=== PATIENT | male | born 2000 | race Caucasian/White ===

== ENCOUNTER 2022-07-22 11:55 | Outpatient (CLI) | payer OTHER, SELFPAY ==
[2022-07-22 13:49] LABS: Basophils Absolute Auto 0.1 K/mm3 (0.0-0.1); Basophils Percent Auto 1.2 % (0.2-1.2); Hematocrit 43.6 % (42.0-52.0); Hemoglobin 15.2 g/dL (14.0-18.0); Immature Granulocyte Absolute 0.02 K/mm3 (0.00-0.031); Immature Granulocyte Percent A 0.5 % (0-0.5); Lymphocytes Absolute Auto 1.29 K/mm3 (0.9-3.2); Mean Corpuscular HGB Conc 34.9 g/dl (32-36); Mean Corpuscular Hemoglobin 30.8 pg (26-34); Mean Corpuscular Volume 88.4 fl (80-100); Mean Platelet Volume 10.6 fl (7.4-10.4); Monocytes Absolute Auto 0.3 K/mm3 (0.1-0.6); Monocytes Percent Auto 7.4 % (2.6-8.5); Neutrophils Absolute Auto 2.3 K/mm3 (1.3-6.7); Neutrophils Percent Auto 57.9 % (45.5-73.1); Platelet Count Result 229 k/mm3 (150-375); Red Blood Count 4.93 M/mm3 (4.6-6.20); Red Cell Distribution Width 12.5 % (11.5-14.5)
[2022-07-22 14:03] LABS: Alanine Aminotransferase 21 U/L (6-50); Albumin Level 4.6 g/dL (3.5-5.1); Alkaline Phosphatase 53 U/L (38-126); Anion Gap 6 mmol/L (8-16); Aspartate Amino Transferase 46 U/L (17-59); Blood Urea Nitrogen 18 mg/dL (9-20); Calcium 8.9 mg/dL (8.4-10.2); Carbon Dioxide 29 mmol/L (22-30); Chloride 103 mmol/L (98-107); Cholesterol 128 mg/dL (0-200); Estimated Glomerular Filt Rate > 60; Glucose 91 mg/dL (65-110); HDL Direct 54 mg/dL; Potassium 4.5 mmol/L (3.4-5.0); Sodium 138 mmol/L (137-145); Triglycerides 35 mg/dL (<150)
[2022-07-22 14:14] LABS: LDL Cholesterol Direct 55 mg/dL
[2022-07-22 14:29] LABS: Thyroid Stimulating Hormone 0.945 uIU/mL (0.465-4.680)
== END 2022-07-22 11:56 | disposition home or self-care (01) ==
LOC: ANHGOSHLAB 11:56
PROVIDERS: PCP Internal Medicine; Visit Provider Nurse Practitioner
DX: F41.9 Anxiety disorder, unspecified (principal); Z13.220 Encounter for screening for lipoid disorders
CPT/HCPCS: 36415; 80053; 80061; 84443; 85025

== ENCOUNTER 2024-07-28 14:41 | Emergency (ER) | payer OTHER, SELFPAY ==
--- OUTSIDE RECORDS SUMMARY | 2024-07-28 14:43 | XMS_ITS | Data Portability ---
Author Organization [place] [facility], Main Office Address [address] [place] [address] Care Team Providers Care Field Operations Supervisor Name Role Phone PILO TIPTON Poker Manager Assessment Encounter Date Assessment Date Assessment LastModified by Organization Details LastModified Time 06/02/2022 06/02/2022 Patient has a left shoulder strain of the rotator cuff tendon and or biceps tendon of the left shoulder. He has been having ongoing pain for at least a month we talked about treatment options today in detail he wanted pain relief therefore under sterile conditions after further discussion I injected the patient's left shoulder subacromial space in the office with 4 cc 0.5% ropivacaine and 20 mg of Kenalog. Patient tolerated procedure well. We will do a course of oral prednisone and get an MRI scan to make sure he does not have any significant tearing of the rotator cuff tendon or injury to the biceps. we will see him back after that is done, he will continue with light duty at work call for any further problems difficulties or questions he voiced understanding agrees with above plan. [email or web address] Not available 06/02/2022 12:10:01 06/16/2022 06/16/2022 Patient returns rotator cuff strain left. He had a shot which he does not think was over the helpful did not take prednisone taper. He remains symptomatic I had a long discussion with him regarding prescription drug management and he does not want to take pills told him that he is hampering his recovery however will try therapy at this point he declined another injection into her shoulder I will see him in a month for follow-up his MRI scan that he brings today I reviewed pictures and report with him at demonstrates essentially normal anatomy maybe a little tendinitis. [email or web address] Not available 06/16/2022 10:08:34 Plan of Treatment Reminders Order Date Submit Date Provider Last Modified By Organization Details Last Modified Time Details Appointments None recorded. Lab None recorded. Referral physical therapist referral 2022 023 [facility], [address], [place], [address], 3 11:00:45 Procedures injection/ aspiration joint/burs a (PROC) - in office procedure, administer ed by provider 2022 023 [email or web address] Not available 13:54:46 Surgeries None recorded. Imaging MRI, shoulder, w/o contrast 2022 023 [facility], [address], [place], [address], 3 17:39:10 Medication Orders Kenalog 10 mg/mL suspension for injection 2022 023 [email or web address] Not available 13:02:25 ropivacain e (PF) 5 mg/mL (0.5 %) injection solution 2022 023 [email or web address] Not available 3 13:02:25 prednisone 10 mg tablets in a dose pack 2022 023 [email or web address] [id number], [address], [place], [id number], 3 12:26:24 Patient TargetsNo targets recorded. Patient InstructionsNo instructions recorded. Reason for Referral Physical Therapist Referral for Strain of rotator cuff of shoulder Referring Physician: Celso Ramirez, Orthopedic Surgery, Encounter Date: 06/16/2022 Results Created Date Observation Date Name Description Value Unit Range Abnormal Flag Note LastModifiedBy Organization Detail LastModifiedTime 06/02/19 23 05/23/2022 XR, shoul edward, 2 or more view No observ ation record ed. [email or web address] Not Available 04/2022 12:05:52 06/09/19 23 06/08/2022 MRI, shoul edward, w/o contr ast No observ ation record ed. [facility] [address], [place], [address], 06/13/2022 14:46:21 Result Notes None recorded. Problems Name Problem SNOMED Code Status Onset Date Resolution Date Notes Provider Name and Address Organization Details Recorded Time Pain of left shoulder joint 656179902172602 09 Active 2022 Phuong Lutz , KATHLEEN L null, [employer] 3 11:09:37 Strain of rotator cuff of shoulder 682523917 Active 2022 ABIGAIL Au [address], [place], [address] [facility] [place] [employer] 3 12:10:26 Problem Notes None recorded. Procedures Surgical History None recorded. Imaging Results Imaging Date Name Status LastModified by Organiz ation Details LastModified Time 05/23/2022 XR, shoulder, 2 or more view completed [email or web address] Information not available 06/01/2022 12:05:52 06/08/2022 MRI, shoulder, w/o contrast completed [facility] [address], [place], [address], 06/13/2022 14:46:21 Procedure Notes None recorded. Medical Equipment None Reported. Allergies No known drug allergies Medications Name Sig Start Date Stop Date Status Note LastModified by Organization Details LastModified Time prednisone 10 mg tablets in a dose pack Take 1 tab by mouth, 3 times a day for 3 daysTake 1 tab by mouth 2 times a day for 2 daysTake 1 tab by mouth once a day for 1 day 2022 active Not Available Not Available Not Avai lable Kenalog 10 mg/mL suspension for injection office 2022 active [facility]: 0003- [phone] Not Available Not Available Not Available ropivacaine (PF) 5 mg/mL (0.5 %) injection solution office 2022 active [facility] [phone]- [phone] Not Available Not Available Not Available Vitals Date Recorded Body height Body mass index (BMI) Body weight Provider Name and Address Organization Details Last Updated DateTime 06/02/2022 185.42 cm 21.1 kg/m2 69297.78 g Phuong Lutz, ATC L [employer] 06/02/2022 11:07:36 Date Recorded Body height Body mass index (BMI) Body weight Provider Name and Address Organization Details Last Updated DateTime 06/16/2022 185.42 cm 20.7 kg/m2 99947 g JULITO Valera [employer] 06/16/2022 09:48:10 Social History Question Answer Notes LastModified by Organizat ion Details LastModified Time Tobacco Smoking Status Never Smoker Phuong Lutz, ATC L [facility] [employer] 06/02/2022 11:09:22 What Is Your Level Of Alcohol Consumption? None [email or web address] Information not available 06/02/2022 Sex: Unknown Functional Status None recorded. Mental Status None recorded. Family History Relationship Description Onset Age of this Age Resolved Age Notes LastModified by Organization Details LastModified Time Maternal Grandfather Family history of malignant neoplasm [email or web address] Not available 05/2022 11:09:12 Maternal Grandmother Family history of malignant neoplasm [email or web address] Not available 05/2022 11:09:12 Medical History No medical history recorded. Past Encounters Encounter ID Performer Location Encounter Start Date Encounter Closed Date Diagnosis/Indication Diagnosis SNOMED-CT Code Diagnosis ICD10 Code Diagnosis Note [id number] [facility] [place] [address] [place] [address] 06/02/2022 10:31:17 06/02/2022 12:26:41 Pain of left shoulder joint 0452960785 [id number] M25.512 Strain of rotator cuff of shoulder 386140226 S46.012A [id number] Celso Ramirez MD [facility] [place] [address] [place] [address] 06/16/2022 09:46:28 06/16/2022 10:35:30 Pain of left shoulder joint [id number] 7668441 M25.512 Strain of rotator cuff of shoulder 949446906 S46.012A Health Concerns Section Related Observation LastModified by Organization Detai ls LastModified Time None Recorded Concern Status LastModified by Organization Details LastModified Time None Recorded Advance Directives Directive None Recorded Payers Encounter Date Sequence Insurance Name Policy Number Policy Ramirez Covered Member ID Ramirez Member ID Guarantor Name 06/02/2022 [employer] Wilson 06/16/2022 [employer] Wilson Notes Date Note Type Note Provider Name and Address Organization Details Recorded Time 06/02/2022 text/html patient is a 21-year-old male who presents with a recent injury to his left shoulder. The patient states he was at work lifting a heavy tire onto a platform when he felt a pop in the left shoulder. He has started to hurt soon after the lifting injury. Over the course of the last month his symptoms have been persistent and a little bit worse with time. The initial injury was May 06. He states he has aching pain in left shoulder anterior to posterior little more anteriorly worse with activity somewhat relieved by rest he comes in today in a sling he states he did go to [facility] ER had x-rays performed. X-rays were unremarkable no acute fracture lesion mass is seen joint space is well maintained subacromial space is well maintained I have reviewed the x-rays in detail today with the patient agree with above findings. X-rays were performed on 05/23/2022. The patient has been trying to rest his arm doing light duty at work taking occasional [id number] anti-inflammatory medication without significant relief. Still is limited when he can do in terms of heavy lifting or overhead motion denies any weakness no radicular pain no obvious deformity of the biceps did not develop any swelling or ecchymosis after the injury. He comes in today for initial evaluation treatment. Prior to the injury he states he has never had any trouble with the shoulder before. When prompted the patient is able to easily raise his arm overhead has no history of subluxation or dislocation.Past medical history sheet was reviewed and signed on the intake sheet today's date drug allergies current medications family social history previous surgical history 10 point review of systems was reviewed and discussed in detail today with the patient. ABIGAIL Au [address] [place] [address], [place] [address], [place], [address], [facility] [employer] [facility] 06/02/2022 12:11:03 06/16/2022 text/html Patient returns shoulder pain left. He continues to be symptomatic with activity he has impingement and pain with overhead motion he also complains pain sometimes just when he is laying down. Celso Ramirez MD [address] [place] [address], [facility] [address], [place], [address], [employer] [facility] 06/16/2022 10:11:00
[2024-07-28 14:47] VITALS: BP 154/89; PULSE 124; RESP 18; TEMP 36.7; O2SAT 100
--- NOTE | 2024-07-28 16:19 | ED.GENADULT ---
HPI - General Adult General Chief complaint: Urogenital-Male Stated complaint: STD Exposure Source: patient Mode of arrival: ambulatory Limitations: no limitations History of Present Illness HPI narrative: Pt presents requesting STI testing. He states he was contacted by a female sex partner who advised that she tested positive for gonorrhea. They last had sexual contact six days ago. He engaged in insertive vaginal intercourse but did not perform oral sex. He was not wearing condom. He now reports bilateral testicular tenderness without significant swelling. He denies any dysuria, urethral discharge, or other urinary symptoms. Related Data Allergies Allergy/AdvReac Type Severity Reaction Status Date / Time No Known Allergies Allergy Verified 07/28/24 14:53 Review of Systems Review of Systems: CONSTITUTIONAL: Denies fever, chills, or sweats. EYES: Denies visual changes, redness, or discharge. ENT: Denies rhinorrhea, congestion, sore throat, or otalgia. CARDIOVASCULAR: Denies chest pain, palpitations, or edema. RESPIRATORY: Denies cough or dyspnea. GASTROINTESTINAL: Denies abdominal pain, nausea, vomiting, or diarrhea. GENITOURINARY: Reports mild bilateral testicular tenderness. Denies dysuria or hematuria. SKIN: Denies rash or itching. MUSCULOSKELETAL: Denies back pain, joint pain, or myalgia. NEUROLOGIC: Denies headache, numbness, dizziness, or weakness. PSYCHIATRIC: Denies anxiety or depression. [facility] Past Medical History Medical History No pertinent past medical history Surgical History Surgical History (Updated 07/28/24 @ 16:22 by PRISCILLA ChamorroP, ) No pertinent past surgical history Family History Family History Grandparent Breast cancer Other Diabetes mellitus Hypertension Social History Social History Smoking status: Never smoker Second hand tobacco smoke exposure: No Do You Feel Safe in your Home?: Yes Lack of Transportation: No Lack of Food: Sometimes True Current Housing: I Have Housing Concerned About Future Housing: No Difficulty Paying Gas/Electric Bills: No Difficulty Paying for Meds: No Currently Unemployed: No Education: High School Diploma/GED Difficulty w/ Childcare or Family Care: No Exam Narrative: GENERAL: Well-appearing, well-nourished, and in no acute distress. HEAD: Normocephalic, atraumatic. EYES: PERRLA and EOMI. ENT: Nares clear, no rhinorrhea or epistaxis. Mucous membranes moist. Oropharynx without tonsillar hypertrophy exudate or other lesions. Bilateral TMs pearly smith nonbulging NECK: Supple. No adenopathy or masses. No carotid bruits or JVD CHEST: Clear to auscultation. No respiratory distress. No wheezes rales or rhonchi HEART: Regular rate and rhythm. No murmur heard. Normal peripheral pulses. ABDOMEN: Soft, nontender, nondistended, normal active bowel sounds. EXTREMITIES: Normal range of motion. No edema. SKIN: Warm, dry, no rash. GENITAL: No external genital lesions. No no urethral discharge. No inguinal lymphadenopathy. Mild bilateral testicular tenderness without swelling NEURO: No focal deficits. Alert and oriented x3. PSYCH: Normal mood and affect. Course Course Emergency Course: This is a 23-year-old male who presented requesting STI testing after his female sex partner tested positive for gonorrhea. He was given injection of Rocephin today. Will discharge with doxycycline. He should have a comprehensive STI evaluation performed. All sex partner should be evaluated and treated. He should abstain from sexual contact until 7 days after he and all sex partners have completed their treatment. He should follow up with primary provider. Go to the ER for worsening symptoms. Patient in agreement with plan of care. Level of Care: Express Care Visit Vital Signs Vital signs: Vital Signs Temperature 36.7 C 07/28/24 14:47 Pulse Rate 124 H 07/28/24 14:47 Respiratory Rate 18 07/28/24 14:47 Blood Pressure 154/89 H 07/28/24 14:47 Pulse Oximetry 100 07/28/24 14:47 Oxygen Delivery Room Air 07/28/24 14:47 Temperature 36.7 C 07/28/24 14:47 Pulse Rate 124 H 07/28/24 14:47 Respiratory Rate 18 07/28/24 14:47 Blood Pressure 154/89 H 07/28/24 14:47 Pulse Oximetry 100 07/28/24 14:47 Oxygen Delivery Room Air 07/28/24 14:47 Medical Decision Making Vital Signs Vital Signs: Vital Signs Temperature 36.7 C 07/28/24 14:47 Pulse Rate 124 H 07/28/24 14:47 Respiratory Rate 18 07/28/24 14:47 Blood Pressure 154/89 H 07/28/24 14:47 Pulse Oximetry 100 07/28/24 14:47 Oxygen Delivery Room Air 07/28/24 14:47 Temperature 36.7 C 07/28/24 14:47 Pulse Rate 124 H 07/28/24 14:47 Respiratory Rate 18 07/28/24 14:47 Blood Pressure 154/89 H 07/28/24 14:47 Pulse Oximetry 100 07/28/24 14:47 Oxygen Delivery Room Air 07/28/24 14:47 Discharge Plan Discharge Clinical Impression: Exposure to gonorrhea Patient Disposition: Home Condition: Stable Instructions: Antibiotic Form, Safe Sex Practices (ED), Gonorrhea (ED) Additional Instructions: PLEASE HAVE COMPREHENSIVE STI EXAMINATION PERFORMED PLEASE ABSTAIN FROM SEXUAL CONTACT UNTIL 7 DAYS AFTER COMPLETING YOUR ANTIBIOTIC THERAPY PLEASE HAVE ALL SEX PARTNERS EVALUATED AND TREATED Patient Language: Khmer Prescriptions: New doxycycline hyclate 100 mg capsule 100 mg PO BID 7 Days Qty: 14 0RF Follow-up/Referrals: Jerry Carrera MD [Physician] - Time of Disposition: 16:17
[2024-07-28] MEDS: cefTRIAXone 500 MG, LIDOCAINE 1% LOCAL INJ 1 ML IM (16:27)
[2024-07-28 16:33] LABS: EDUAAPPEAR Clear; EDUABILI Negative (Negative); EDUABLOOD Negative (Negative); EDUACOLOR1 Amber; EDUAGLUCOSE Negative (Negative); EDUAKETONE Negative (Negative); EDUALEUKO Negative (Negative); EDUANITRATE Negative (Negative); EDUAPH 5.5; EDUAPROTEIN 1+ (Negative); EDUAUROBILI 0.2
[2024-07-28 19:30] LABS: Trichomonas Vag PCR NOT DETECTED (NOT DETECTE)
[2024-07-28 19:57] LABS: Chlamydia trachomatis NOT DETECTED (NOT DETECTE); Neisseria gonorrhoeae PCR NOT DETECTED (NOT DETECTE)
== END 2024-07-28 16:47 | disposition home or self-care (01) ==
PROVIDERS: Emergency Provider Nurse Practitioner
DX: Z20.2 Contact with and (suspected) exposure to infections with a predominantly sexual mode of transmission (principal)
CPT/HCPCS: 81003; 87086; 87491; 87591; 87661; 96372; 99213; G0463; J0696; J2003

== ENCOUNTER 2025-03-07 15:51 | Emergency (ER) | payer OTHER, SELFPAY ==
--- NOTE | 2025-03-07 15:53 | ED.EYEPROB ---
HPI - Eye Problem General Chief complaint: Eye Problems Stated complaint: right eye Time Seen by Provider: 03/07/25 15:52 Source: patient Mode of arrival: ambulatory Limitations: no limitations History of Present Illness HPI Narrative: Jeremi is a 24 year old male patient presenting to the clinic today with c/o infected hair sore to the right eyebrow. He reports he attempted to remove it yesterday and was unable to get the hair out completely. Woke up with increase redness, pain, and swelling to the right eyebrow/lid. Has some yellow crusting over the area. No fever, chills, or body aches. No visual changes. Related Data Allergies Allergy/AdvReac Type Severity Reaction Status Date / Time No Known Allergies Allergy Verified 03/07/25 15:54 Review of Systems Review of Systems: Pertinent positives per HPI. Patient denies any fever, chills, rash, headache, visual changes, dizziness, cough, shortness of breath, chest pain, palpitations, nausea, vomiting, diarrhea, constipation, abdominal pain, or any urinary issues. ZAN Past Medical History Medical History No pertinent past medical history Surgical History Surgical History No pertinent past surgical history Family History Family History Grandparent Breast cancer Other Diabetes mellitus Hypertension Social History Social History Smoking status: Never smoker Second hand tobacco smoke exposure: No Lack of Transportation: No Lack of Food: Sometimes True Current Housing: I Have Housing Concerned About Future Housing: No Difficulty Paying Gas/Electric Bills: No Difficulty Paying for Meds: No Currently Unemployed: No Education: High School Diploma/GED Difficulty w/ Childcare or Family Care: No Comments At the time of my signature, I reviewed and agree with the nursing past medical, surgical, social, and family history. There is no relevant family history pertinent to the patient complaint. Exam Narrative: General: Well-developed, well nourished, in no apparent distress Head: Normocephalic, atraumatic Eyes: Pupils equally round and reactive to light bilaterally, EOM intact, sclera and conjunctive clear, no discharge, infected her sore to the right eyebrow with localized redness, mild erythema, and swelling. Induration measuring 1 cm x 1.5 cm-tenderness to palpation over the area without fluctuance Ears: TMs intact and clear, ear canals clear, no drainage, grossly hearing normal. Nose: Nares patent, no discharge, no inflammation, no sinus tenderness. Mouth: Oropharynx without lesions or masses, good dentition, MMM. Neck: Supple, trachea midline, no enlargement of anterior or posterior cervical nodes, no thyroid masses or goiter palpable. Cardio: Regular rate and rhythm, s1 and s2 normal, no murmur appreciated. Resp: Clear to auscultation bilaterally anteriorly and posteriorly, no rhonchi, rales, wheezing or rubs Course Course Level of Care: Express Care Visit Vital Signs Vital signs: Vital Signs Temperature 36.9 C 03/07/25 16:00 Pulse Rate 96 03/07/25 16:00 Respiratory Rate 18 03/07/25 16:00 Blood Pressure 131/66 03/07/25 16:00 Pulse Oximetry 100 03/07/25 16:00 Oxygen Delivery Room Air 03/07/25 16:00 Temperature 36.9 C 03/07/25 16:00 Pulse Rate 96 03/07/25 16:00 Respiratory Rate 18 03/07/25 16:00 Blood Pressure 131/66 03/07/25 16:00 Pulse Oximetry 100 03/07/25 16:00 Oxygen Delivery Room Air 03/07/25 16:00 [facility] Narrative Medical decision making narrative: At the time of visit patient is resting comfortably on the exam table. Patient appears to be nontoxic. C/o infected hair sore to the right eyebrow. He reports he attempted to remove it yesterday and was unable to get the hair out completely. Woke up with increase redness, pain, and swelling to the right eyebrow/lid. Has some yellow crusting over the area. No fever, chills, or body aches. No visual changes. On exam patient has infected her sore to the right eyebrow with localized redness, mild erythema, and swelling. Induration measuring 1 cm x 1.5 cm-tenderness to palpation over the area without fluctuance Plan: I suspect patient has an infected here sore to the right eyebrow. Prescription for doxycycline and mupirocin cream was sent to the pharmacy. May use warm compresses and take Tylenol/Motrin as needed for pain. Supportive measures were discussed with the patient and they voiced understanding discharge instructions and agrees to treatment plan. Return precautions reviewed Differential Diagnosis Differential Diagnosis: Differential diagnostic considerations for eye problems include corneal abrasion, conjunctivitis, acute iritis, hyphemia, periorbital cellulitis, subconjunctival hemorrhage, glaucoma, corneal ulcer, ruptured globe, foreign body in eye. Discharge Plan Discharge Clinical Impression: Bacterial infection of skin Patient Disposition: Home Condition: Stable Instructions: Antibiotic Form, Wound Infection (ED) Additional Instructions: Apply mupirocin cream to the affected area Apply warm compresses to the affected area Keep wound clean and dry Take doxycycline as prescribed Watch for signs and symptoms of infection- redness, streaking, swelling, purulent discharge, or increase in pain. Follow up with your PCP in 2-3 days for wound check Patient Language: Tamazight Prescriptions: New mupirocin [Centany] 2 % ointment 1 applic topical BID 7 Days Qty: 22 0RF doxycycline monohydrate 100 mg capsule 100 mg PO BID 7 Days Qty: 14 0RF Follow-up/Referrals: Xander Miramontes DO [Primary Care Provider, Internal Medicine] Time of Disposition: 16:07 Quality NIHSS Nursing Documentation ED NIHSS nursing documentation: reviewed/agree
[2025-03-07 16:00] VITALS: BP 131/66; PULSE 96; RESP 18; TEMP 36.9; O2SAT 100
== END 2025-03-07 16:12 | disposition home or self-care (01) ==
PROVIDERS: Emergency Provider Nurse Practitioner Family; PCP Internal Medicine
DX: L08.9 Local infection of the skin and subcutaneous tissue, unspecified (principal); B96.89 Other specified bacterial agents as the cause of diseases classified elsewhere
CPT/HCPCS: 99213; G0463